=== PATIENT | female | born 1935 | race Caucasian/White ===

== ENCOUNTER → 2017-07-09 | Outpatient (CLI) | payer MEDICARE, BC ==
[2017-07-09 12:27] LABS: Blood Urea Nitrogen 30 mg/dL (7-17)
== END | disposition home or self-care (01) ==
LOC: LABWHC1 11:40
PROVIDERS: ATTEND Physical Medicine & Rehabilitation
DX: Z01.818 Encounter for other preprocedural examination (principal); N28.9 Disorder of kidney and ureter, unspecified; M48.062 Spinal stenosis, lumbar region with neurogenic claudication; Z98.890 Other specified postprocedural states
CPT/HCPCS: 36415; 82565; 84520

== ENCOUNTER → 2018-01-31 | Outpatient (CLI) | payer MEDICARE, BC ==
[2018-01-31 11:58] LABS: HCT 42.6 % (34.0-46.0); HGB 13.6 gm/dL (11.4-16.0); MCH 29.7 pg (25.0-35.0); MCV 92.6 fL (80.0-100.0); Mean Platelet Volume 6.8; Platelet Count 212 k/uL (150-450); RDW 14.7 % (11.5-15.5); WBC 5.3 k/uL (3.8-10.6)
[2018-01-31 12:16] LABS: Partial Thromboplastin Time 25.6 sec (22.0-30.0); Prothrombin Time 9.6 sec (9.0-12.0)
[2018-01-31 12:19] LABS: Appearance,Urine Turbid (Clear); Bacteria,Urine Moderate /hpf; Bilirubin,Urine Negative (Negative); Blood,Urine Small (Negative); Color,Urine Yellow; Glucose,Urine (UA) Negative (Negative); Ketones,Urine Negative (Negative); Leukocyte Esterase,Urine Large (Negative); Mucus,Urine Rare /hpf; Nitrite,Urine Negative (Negative); PH, Urine 5.5 (5.0-8.0); Protein,Urine 1+ (Negative); Specific Gravity,Urine 1.015 (1.001-1.035); Squamous Epithelial Cell,Urine 6 /hpf (0-4); Urobilinogen,Urine <2.0 mg/dL (<2.0); WBC,Urine >182 /hpf (0-5)
[2018-01-31 12:21] LABS: Albumin 3.9 g/dL (3.5-5.0); Calcium 9.2 mg/dL (8.4-10.2); Potassium 4.2 mmol/L (3.5-5.1); Total Bilirubin 0.6 mg/dL (0.2-1.3); Total Protein 6.9 g/dL (6.3-8.2)
== END | disposition home or self-care (01) ==
LOC: LABPAT 11:00
PROVIDERS: ATTEND Orthopaedic Surgery
DX: Z01.812 Encounter for preprocedural laboratory examination (principal)
CPT/HCPCS: 80053; 81001; 85027; 85610; 85730; 87070

== ENCOUNTER 2018-02-12 05:33 | Inpatient (IN) | payer MEDICARE, BC ==
[2018-02-05 10:46] VITALS: BMI 30.6
[~2018-02-12 05:33] MED LIST: ACETAMINOPHEN TAB 500 MG TAB PO ONE; TRANEXAMIC ACID 1,000 MG in SODIUM CHLORIDE 0.9% 50 ML IVPB ONE; ceFAZolin IN SWFI 2 GM/20 ML SYRINGE IVP ONE
[2018-02-12] MEDS ORDERED: LACTATED RINGERS 1,000 ML IV ONE ×2 (06:36→08:09)
[2018-02-12] MEDS ORDERED: LIDOCAINE 1% 20 ML VIAL (10MG/ML) FOR IV START INTRADERMA ONE (06:36)
[2018-02-12 06:37] LABS: Glucose,Whole Blood 87 mg/dL (75-99)
[2018-02-12] MEDS ORDERED: ONDANSETRON 4 MG/2 ML VIAL ONE (06:42)
[2018-02-12] MEDS ORDERED: MIDAZOLAM 2 MG/2 ML VIAL ONE ×2 (06:44→07:05)
[2018-02-12] MEDS ORDERED: ONDANSETRON 4 MG/2 ML VIAL IVP ONE (06:44)
[2018-02-12] MEDS ORDERED: DEXAMETHASONE SOD PHOS (MDV) 100 MG/10 ML VIAL IVP ONE (06:45)
[2018-02-12] MEDS ORDERED: HYDROmorphone 0.5 MG/0.5 ML SYRINGE IVP PRN (06:53)
[2018-02-12] MEDS ORDERED: LIDOCAINE 1% 20 ML VIAL (10MG/ML) FOR IV START INTRADERMA PRN (06:53)
[2018-02-12] MEDS: ROPIVACAINE 246.25 MG, EPINEPHrine 0.5 MG, KETOROLAC 30 MG, cloNIDine HCL/PF 80 MCG, WA... MISCELLANE ONE ×10 (06:53→07:40)
[2018-02-12] MEDS ORDERED: NA PHOS,M-B/NA PHOS,DI-BA 133 ML ENEMA RECTAL PRN (06:58)
[2018-02-12] MEDS ORDERED: ONDANSETRON 4 MG/2 ML VIAL IVP PRN (06:58)
[2018-02-12] MEDS ORDERED: DIAZEPAM 5 MG TAB PO PRN (06:58)
[2018-02-12] MEDS ORDERED: NALOXONE 0.4 MG/ML 1 ML VIAL IV PRN (06:58)
[2018-02-12] MEDS ORDERED: HYDROcodone/APAP 5-325MG 1 EACH TAB PO PRN (06:58)
[2018-02-12] MEDS ORDERED: HYDROmorphone 1 MG/ML 1 ML SYRINGE IVP PRN ×3 (06:58)
[2018-02-12] MEDS ORDERED: MAGNESIUM HYDROXIDE 2,400 MG/10 ML CUP PO PRN (06:58)
[2018-02-12] MEDS ORDERED: BISACODYL 10 MG SUPP RECTAL PRN (06:58)
[2018-02-12] MEDS ORDERED: fentaNYL (PF) 50 MCG/ML 2 ML AMP ONE (07:05)
[2018-02-12] MEDS ORDERED: LIDOCAINE 1% INJ 10MG/ML (20 ML MDV) ONE (07:05)
[2018-02-12] MEDS ORDERED: PROPOFOL 10 MG/ML 20 ML VIAL IV ONE (07:05)
[2018-02-12] MEDS ORDERED: TRANEXAMIC ACID 1,000 MG/10 ML VIAL ONE (07:05)
[2018-02-12] MEDS ORDERED: SODIUM CHLORIDE 0.9% 100 ML BAG ONE (07:05)
[2018-02-12] MEDS ORDERED: CLINDAMYCIN 1,800 MG in SODIUM CHLORIDE 0.9% IRRIGATIO 3,000 ML IRRIGATION ONE (07:41)
--- NOTE | 2018-02-12 08:49 | P.OP ---
Date of Procedure: 02/12/18 Preoperative Diagnosis: Failed unicompartmental knee replacement right knee Postoperative Diagnosis: Failed unicompartmental knee replacement right knee Procedure(s) Performed: Revision right total knee arthroplasty Implants: Tiwari and Nephew Oxinium femoral component size 4, right Tiwari & Nephew Jimena II right nonporous tibial baseplate size 4 Tiwari & Nephew size 15 mm Legion XLPE dished articular insert, size 3-4 Tiwari & Nephew Jimena II resurfacing patellar component, 29 mm All components were cemented using Gardenia bone cement.. The articulation is Oxinium on polyethylene. Anesthesia: spinal Surgeon: Mark Siegel Senior Project Controls Specialist #1: Komal Rosario Estimated Blood Loss (ml): 50 Pathology: other (Bone and cartilage) Condition: stable Disposition: PACU Indications for Procedure: This is an 82-year-old female that has had a prior unicompartmental knee replacement of her right knee. She subsequently developed pain secondary to worsening arthritis of the patellofemoral and lateral femoral compartments, as well as wear of the medial unicompartmental knee replacement. I discussed the surgical and nonsurgical treatment options with her at length, and she wishes to proceed with revision right total knee arthroplasty. Informed consent was obtained. Operative Findings: The operative findings are consistent with a failed unicompartmental knee replacement the right knee. There is extensive polyethylene wear of the medial unicompartmental knee replacement, as well as significant arthritic changes of the lateral patellofemoral compartments. Description of Procedure: Patient was seen in the preoperative area consent was reviewed and operative site was marked with a skin marker. An adductor canal pain catheter was placed by anesthesia in the preoperative area. Patient was then brought to the operating room and given preoperative antibiotics intravenously. A spinal anesthetic was administered by the anesthesia department. A tourniquet was placed on the upper thigh and the lower extremity was prepped and draped in usual sterile fashion. A gram of transexamic acid was given. A universal timeout was then performed which confirmed the patient's name, surgical site, ALLERGIES, and consent. The lower extremity was then exsanguinated and tourniquet was inflated to 250 mmHg. A standard and anterior midline approach to the knee was performed. The skin and subcutaneous tissue was dissected down to the patellar tendon. A medial parapatellar arthrotomy was then performed. The knee was then extended, the patellar was everted, and the knee was again flexed. Anterior horns of both menisci were excised, and a release was performed to the posterior medial aspect of the knee. On gross visual inspection, there was complete loss of articular cartilage in the lateral and patellofemoral joint spaces, as well as significant wear of the polyethylene of the medial compartment knee replacement. There were multiple periarticular osteophytes which were then removed with a Ronguer. The femoral canal was then opened with the appropriate drill, and the intramedullary femoral cutting guide was then placed and set for 4 of valgus. The distal femoral cutting block was then pinned in place. Next , using a small oscillating saw, the implant cement interface was disrupted from the femoral component of the unicompartmental knee replacement. The implant was then removed with a bone punch and mallet without incident. Minimal bone loss was encountered. The distal femur was then cut using the cutting guide. The cutting block was then removed and the cut was checked for flatness. Next, the sizing guide was then placed and set for 3 external rotation based off of the epicondylar axis and Whitesides line. After the femur was sized, the appropriate 4-in-1 cutting block was then pinned in place. The anterior condyles were cut without notching. The posterior and chamfer cuts were performed while protecting the collateral ligaments. The cutting block was then removed, and the femoral canal was plugged with autologous bone. Attention was then directed to the tibia. The remaining ACL was removed with a Ronguer, and the tibia was then gently subluxed forward with a large bent knee retractor. Any remaining menisci was excised. The posterior lateral corner was cauterized in order to cauterize the lateral geniculate artery. The extra medullary tibial cutting guide was then placed, set for the appropriate rotation , slope, and depth of resection. The cut was oriented to be just underneath the medial tibial component. The proximal tibia cutting guide was then pinned in place. Proximal tibia was then cut and sized. Next trials were then placed with the appropriate-sized insert. The knee was able to fully extend and flex to 130 and was stable throughout all range of motion. The knee was then extended, patella everted. Patella was then measured, and then using an osteotomy guide, the patella was cut at the appropriate level. The patella was then measured and drilled and the patella trial was then placed. The knee was then taken through range of motion with the patella trial and the patella tracked normally. The knee was then extended patella trial was then removed and the patella was everted. Knee was then flexed and lug holes were drilled through the femoral trial and the femoral trial was then removed. The tibial was then exposed, and the tibial broach guide was then pinned in place after it was set for the appropriate rotation to allow for the most coverage without overhang. The tibia was then reamed and broached. The cut surfaces of bone were then irrigated with pulsatile lavage. The posterior structures were injected with the ropivacaine solution. The knee was also irrigated with Irrisept solution. The components were then opened, the cement was mixed, and the components were then cemented in place. The cement was allowed to harden with the knee in full extension. While the cement was hardening, the remaining soft tissues were then injected with a ropivacaine solution, which consisted of 246.25 mg of ropivacaine, 0.5 mg of epinephrine, 30 mg of Toradol, 80 g of clonidine, and 48.45 mL of sterile water, for a total of 100 mL of fluid injected. After the cemented hardened. The tourniquet was released, and hemostasis was obtained. A second gram of transexamic acid was given. The knee was again irrigated. The knee was again taken through range of motion and found to be stable throughout all range of motion of 0-130 , and the patella tracked normally. The fascia was then closed with #2 strata fix suture. The subcutaneous tissue was closed with 3-0 Vicryl and 3-0 strata fix. Dermabond glue was used for the skin and placed with the knee in flexion. The patient was placed in a sterile silver dressing. Patient was then transferred to recovery room in stable condition. The operations and intelligence assistant ALEXEI Solorio was required due the complexity surgery and the need for a skilled certified surgical technician. She assisted in positioning, draping, retraction, and closure of the wound.
[2018-02-12] MEDS ORDERED: ROPIVACAINE 1,100 MG, SODIUM CHLORIDE 0.9% 330 ML MISCELLANE PRN ×2 (10:07)
--- NOTE | 2018-02-12 10:10 | P.ONQ ---
Anesthesiology Proc Note - PNB - Peripheral Nerve Block Performed Right Adductor Canal Infusion Procedure Start Time: 09:29 Indication: Acute Post-Operative Pain, Analgesia Specifically requested for management of pain by : Mark Siegel Sedation Type: Sedate with meaningful contact maintained Preparation: Sterile Prep Position: Supine Catheter Depth at Skin (cm): 8 Catheter: Indwelling Needle Types: On-Q Needle Size: 150mm (6") Needle Gauge: 18 Technique: Ultrasound Injectate: 0.5% Ropivacaine (see comment for volume) (20cc) Blood Aspirated: No Pain Paresthesia on Injection Noted: No Resistance on Injection: Normal Events: Uneventful and Well Tolerated
--- NOTE | 2018-02-12 10:12 | XR ---
EXAMINATION TYPE: XR knee limited RT DATE OF EXAM: 02/12/2018 COMPARISON: NONE TECHNIQUE: Two views submitted HISTORY: Post op FINDINGS: There is a prosthetic knee in near anatomic alignment. There is soft tissue edema and emphysema. IMPRESSION: 1. Postoperative change. Appears in near-anatomic alignment
[2018-02-12] MEDS: LACTATED RINGERS 1,000 ML IV SCH (11:23)
[2018-02-12] MEDS: SODIUM CHLORIDE 0.9% 1,000 ML IV SCH ×2 (11:24→20:18)
--- NOTE | 2018-02-12 16:11 | P.CONS ---
History of Present Illness - Reason for Consult Consult date: 02/12/18 Medical management of heart failure Requesting physician: Mark Siegel - Chief Complaint Consulted for medical management of heart failure - History of Present Illness The patient is a 82-year-old female the past focal history of congestive heart failure unknown type who is currently postop day #0 after having revision of right total knee arthroplasty secondary to her history of failed unicompartmental knee replacement. The patient is doing really well and has no complaints, she reports a history of congestive heart failure and mentions mild lower extremity swelling at this time, she denies any shortness of breath, she denies chest pain,she denies cough. She is in great spirits and feels Good today. The patient did report being treated for a recent UTI when asked about her Bactrim, she reports she was given a ten-day course for which she's only completed 5 days due to having severe nausea from her antibiotics. At present she was without any urinary symptoms she denies any dysuria frequency or urgency or suprapubic tenderness. Review of Systems Pertinent positives per HPI, all other review of systems are otherwise negative Past Medical History Past Medical History: Heart Failure, Osteoarthritis (OA) Additional Past Medical History / Comment(s): current tx UTI,swelling stephanie feet and ankles,"fast heart rate",steroid injection to back within 3 mos History of Any Multi-Drug Resistant Organisms: None Reported Past Surgical History: Appendectomy, Back Surgery, Cardiac Ablation, Cholecystectomy, Hernia Repair, Joint Replacement Additional Past Surgical History / Comment(s): back fusion,Pain procedures to back,stephanie knee replacements,stephanie cataracts Past Anesthesia/Blood Transfusion Reactions: Postoperative Nausea & Vomiting ( PONV) Additional Past Anesthesia/Blood Transfusion Reaction / Comm: no hx blood transfusion Past Psychological History: No Psychological Hx Reported Smoking Status: Never smoker Past Alcohol Use History: None Reported Past Drug Use History: None Reported - Past Family History Mother Family Medical History: No Reported History Sister(s) Family Medical History: Cancer Additional Family Medical History / Comment(s): pancreas Father Family Medical History: Cancer Additional Family Medical History / Comment(s): skin Medications and Allergies Home Medications Medication Instructions Recorded Confirmed Type Aspirin 81 mg PO DAILY 02/05/18 02/12/18 History Bumetanide [BUMEX] 2 mg PO BID 02/05/18 02/12/18 History Cholecalciferol [Vitamin D3] 1,000 unit PO DAILY 02/05/18 02/12/18 History Estradiol [Estrace] 0.5 mg PO QAM 02/05/18 02/12/18 History Fexofenadine/Pseudoephedrine 1 tab PO DAILY 02/05/18 02/12/18 History [Brina-D 24 Hour Tablet] Magnesium Oxide [Mag-Ox] 250 mg PO BID 02/05/18 02/12/18 History Multivit-Min/Iron/Folic/Lutein 1 tab PO DAILY 02/05/18 02/12/18 History [Centrum Silver Women Tablet] Emory-3 Fatty Acids/Fish Oil [Fish 1 cap PO DAILY 02/05/18 02/12/18 History Oil 1,000 mg Softgel] Potassium Chloride [Klor-Con 20] 20 meq PO BID 02/05/18 02/12/18 History Ubidecarenone [Co Q-10] 100 mg PO DAILY 02/05/18 02/12/18 History Vitamin B Complex 1 cap PO DAILY 02/05/18 02/12/18 History Acetaminophen [Tylenol Extra 1,000 mg PO BID PRN 02/08/18 02/12/18 History Strength] Bimatoprost [Lumigan .01% Ophth 1 drop BOTH EYES HS 02/12/18 02/12/18 History Soln] Sulfamethox-Tmp 800-160Mg [Bactrim 1 tab PO BID 02/12/18 02/12/18 History DS 800-160 mg] Allergies Allergy/AdvReac Type Severity Reaction Status Date / Time adhesive tape Allergy Rash/Hives,"paper Verified 02/12/18 12:39 tape is ok" amoxicillin Allergy Rash/Hives Verified 02/12/18 12:39 celecoxib [From Celebrex] Allergy Swelling Verified 02/12/18 12:39 Penicillins Allergy Rash/Hives Verified 02/12/18 12:39 rofecoxib [From Vioxx] Allergy Swelling Verified 02/12/18 12:39 arthritis drugs Allergy Swelling Uncoded 02/05/18 10:13 Physical Exam Vitals: Vital Signs Temp Pulse Resp BP Pulse Ox 02/12/18 13:00 92 16 152/74 95 02/12/18 12:45 81 16 170/74 94 L 02/12/18 12:30 86 16 156/85 99 02/12/18 12:15 77 16 151/85 98 02/12/18 12:00 82 16 150/85 98 02/12/18 11:45 85 16 152/86 95 02/12/18 11:30 80 16 142/84 99 02/12/18 11:15 76 16 143/82 98 02/12/18 11:00 98 F 77 16 139/82 98 02/12/18 10:30 77 16 118/68 97 02/12/18 10:15 75 16 123/60 95 02/12/18 10:00 74 16 125/59 95 02/12/18 09:39 75 16 125/60 95 02/12/18 09:24 77 16 123/77 98 02/12/18 09:09 97.5 F L 87 16 103/58 95 02/12/18 06:20 98.1 F 99 18 147/65 98 Intake and Output 02/12/18 02/12/18 02/12/18 06:59 14:59 22:59 Intake Total 100 1601 Output Total 450 Balance 100 1151 Intake: IV 100 1601 Output: Urine 400 Estimated Blood Loss 50 Other: # Voids 1 Weight 77.111 kg Constitutional: No acute distress, conversant, pleasant Eyes: Anicteric sclerae, moist conjunctiva, no lid-lag, PERRLA ENMT: NC/AT,Oropharynx clear, no erythema, exudates Neck:Supple, FROM, no masses, or JVD, No carotid bruits; No thyromegaly Lungs: Clear to auscultation, Clear to percussion, Normal respiratory effort, no accessory muscle use Cardiovascular: Heart regular in rate and rhythm, No murmurs, gallops, Abdominal: Soft Nontender, nom distended, no guarding, no rebound or rigidity, Normoactive bowel sounds No hepatomegaly, No splenomegaly, No palpable mass No abdominal wall hernia noted Skin: Normal temperature, tone, texture, turgor, No induration No subcutaneous nodules, No rash, lesions, No ulcers Extremities: Right lower extremity bandaged and dressed no drainage noted, good pulses bilaterally, trace peripheral edema in the legs. Psychiatric: Alert and oriented to person, place and time, Appropriate affect Intact judgement Neuro: Muscles Strength 5/5 in all 4 extremities, Sensation to light touch grossly present throughout, Cranial nerves II-XII grossly intact. No focal sensory deficits Assessment and Plan (1) Congestive heart failure Current Visit: Yes Status: Acute Code(s): I50.9 - HEART FAILURE, UNSPECIFIED SNOMED Code(s): 11200110 (2) Status post right knee surgery Current Visit: Yes Status: Acute Code(s): Z98.890 - OTHER SPECIFIED POSTPROCEDURAL STATES SNOMED Code(s): 150878251 (3) History of urinary tract infection Current Visit: Yes Status: Acute Code(s): Z87.440 - PERSONAL HISTORY OF URINARY (TRACT) INFECTIONS SNOMED Code(s): 5362833068043 (4) Essential hypertension Current Visit: Yes Status: Acute Code(s): I10 - ESSENTIAL (PRIMARY) HYPERTENSION SNOMED Code(s): 16273853 Plan: The patient is admitted to primary orthopedic service under Dr. Siegel and is doing well postop, will defer all ongoing analgesic post surgical pain management to primary team. She reports history of congestive heart failure of unknown type and is currently euvolemic and asymptomatic. Her blood pressure is currently elevated we'll continue to monitor plan to resume her home Bumex dose and see if it normalizes. She reports a history of urinary tract infection that appears to have been treated, currently denied any urinary symptoms. Patient is doing pretty well, would expect discharge for tomorrow. We'll continue to follow her clinical course I appreciate the opportunity to be involved ongoing care of this patient.
[2018-02-12] MEDS: ceFAZolin IN SWFI 2 GM/20 ML SYRINGE IVP SCH (16:33)
[2018-02-12] MEDS: HYDROcodone/APAP 5-325MG 1 EACH TAB PO PRN (20:17)
[2018-02-12] MEDS: MAGNESIUM OXIDE 400 MG TAB PO SCH (20:18)
[2018-02-12] MEDS: POTASSIUM CHLORIDE ER 20 MEQ TAB.ER PO SCH (20:18)
[2018-02-12] MEDS: ASPIRIN 325 MG TAB PO SCH (20:18)
[2018-02-12] MEDS: BUMETANIDE 1 MG TAB PO SCH (20:18)
[2018-02-12] MEDS: SENNOSIDES-DOCUSATE SODIUM 1 EACH TAB PO SCH (20:18)
[2018-02-12] MEDS: LATANOPROST 0.005% OPHTH DROPS 2.5 ML BTL BOTH EYES SCH (20:18)
[2018-02-13] MEDS: ceFAZolin IN SWFI 2 GM/20 ML SYRINGE IVP SCH (00:14)
[2018-02-13] MEDS: LACTATED RINGERS 1,000 ML IV SCH (07:51)
[2018-02-13 08:09] LABS: Basophils % (A) 0 %; Eosinophils # (A) 0.1 k/uL (0-0.7); Eosinophils % (A) 1 %; HCT 34.6 % (34.0-46.0); HGB 11.2 gm/dL (11.4-16.0); Lymphocytes # (A) 1.5 k/uL (1.0-4.8); Lymphocytes % (A) 25 %; MCHC 32.5 g/dL (31.0-37.0); MCV 92.2 fL (80.0-100.0); Mean Platelet Volume 7.7; Monocytes # (A) 0.4 k/uL (0-1.0); Monocytes % (A) 8 %; Neutrophils # (A) 3.8 k/uL (1.3-7.7); Neutrophils % (A) 65 %; Platelet Count 222 k/uL (150-450); RBC 3.75 m/uL (3.80-5.40); RDW 14.2 % (11.5-15.5); WBC 5.9 k/uL (3.8-10.6)
[2018-02-13] MEDS: HYDROcodone/APAP 5-325MG 1 EACH TAB PO PRN ×3 (08:19→23:17)
[2018-02-13] MEDS: MULTIVITAMINS, THERA 1 EACH TAB PO SCH (08:19)
[2018-02-13] MEDS: BUMETANIDE 1 MG TAB PO SCH (08:19)
[2018-02-13] MEDS: ASPIRIN 325 MG TAB PO SCH ×2 (08:19→20:32)
[2018-02-13] MEDS: CHOLECALCIFEROL 1,000 UNIT TAB PO SCH ×2 (08:19→08:20)
[2018-02-13] MEDS: MAGNESIUM OXIDE 400 MG TAB PO SCH ×2 (08:26→20:32)
[2018-02-13] MEDS: POTASSIUM CHLORIDE ER 20 MEQ TAB.ER PO SCH ×2 (08:26→20:32)
[2018-02-13] MEDS ORDERED: ASPIRIN 81 MG PO SCH (09:00)
[2018-02-13] MEDS ORDERED: NON-FORMULARY DRUG (Ubidecarenone [Co Q-10] 100 MG) PO SCH (09:00)
[2018-02-13] MEDS ORDERED: NON-FORMULARY DRUG (Omega-3 Fatty Acids/Fish Oil [Fish Oil 1,000 Mg Softgel] 1 CAP) PO SCH (09:00)
--- NOTE | 2018-02-13 09:01 | P.PN ---
Subjective Progress Note Date: 02/13/18 This is an 82-year-old female who is status post revision right total knee arthroplasty. This is postoperative day #1. Patient is seen and evaluated at bedside with Dr. Mark Siegel. Patient states that her pain is well controlled. Patient denies any fever/chills, numbness, weakness, tingling, abdominal pain, shortness of breath or chest pain. Objective - Vital Signs Vital signs: Vital Signs Temp 97.9 F 02/13/18 07:00 Pulse 61 02/13/18 07:00 Resp 16 02/13/18 07:00 BP 112/69 02/13/18 07:00 Pulse Ox 98 02/13/18 07:00 Intake & Output 02/12/18 02/13/18 02/13/18 18:59 06:59 18:59 Intake Total 1601 200 Output Total 450 Balance 1151 200 Weight 77.111 kg 77.111 kg Intake: IV 1601 Intake, IV Titration 200 Amount Sodium Chloride 0.9% 1, 200 000 ml @ 65 mls/hr IV . [id number] [facility] Rx#:[id number] Output: Urine 400 Estimated Blood Loss 50 Other: Voiding Method Toilet Toilet # Voids 2 - Exam Vital signs are stable. Patient is in no acute distress and is alert and oriented 3. Calf is soft and nontender to palpation. Dressing is clean, dry, and intact. Patient has full foot and ankle motion without pain or difficulty. Neurovascular status and circulatory status are intact. - Labs CBC & Chem 7: 02/13/18 07:24 Labs: Abnormal Lab Results - Last 24 Hours (Table) 02/13/18 Range/Units 07:24 RBC 3.75 L (3.80-5.40) m/uL Hgb 11.2 L (11.4-16.0) gm/dL Assessment and Plan (1) S/P total knee arthroplasty Current Visit: Yes Status: Acute Code(s): Z96.659 - PRESENCE OF UNSPECIFIED ARTIFICIAL KNEE JOINT SNOMED Code(s): 4444217024466 Plan: #1 Continue with routine postoperative care, leave dressing in place for ten days. #2 Anticoagulation with aspirin. #3 Physical therapy and CPM today. #4 Appreciate input from medicine. #5 Anticipate discharge to rehab on Sunday.
[2018-02-13] MEDS ORDERED: SODIUM CHLORIDE 0.9% 500 ML IV ONE ×2 (09:57→11:23)
[2018-02-13] MEDS: SODIUM CHLORIDE 0.9% 1,000 ML IV SCH ×2 (13:09→20:32)
--- NOTE | 2018-02-13 17:51 | P.PN ---
Subjective Progress Note Date: 02/13/18 (deayed charting patient seen at approximately 10 am) Principal diagnosis: Knee pain Patient is an 82-year-old female with a past medical history of osteoarthritis, congestive heart failure, and prior urinary tract infection who presented for elective right total knee arthroplasty. She underwent surgery on 02/12 without any immediate postoperative complications. This morning she had a syncopal event while ambulating back from the bathroom. She felt lightheaded hot and dizzy. The clinical nursing coordinator was with her and she managed to get back to bed was lowered down and then had a presyncopal episode. They checked her blood pressure was 89/58. After lying down for several minutes her blood pressure increased to 119/65. Patient seen and examined at bedside. She denies any chest pain, shortness breath, lightheadedness, or dizziness at this point in time. She reports that she did feel hot and dizzy which she was in the bathroom. She tells me that she has a history of a syncopal event after having her cardiac ablation. She states that her and her mother both have a history of these. She does the licensed therapist out of [place] and has had multiple evaluations without any significant events noted recently. She is feeling fine at this point in time. She does report that the episode happened when she got a sharp pain in her knee. The pain is still there but has decreased significantly. She felt as though the pain not wind out of her. Objective - Vital Signs Vital signs: Vital Signs Temp 97.8 F 02/13/18 14:58 Pulse 93 02/13/18 15:42 Resp 16 02/13/18 15:42 BP 126/78 02/13/18 14:58 Pulse Ox 98 02/13/18 14:58 Intake & Output 02/12/18 02/13/18 02/13/18 18:59 06:59 18:59 Intake Total 1601 200 500 Output Total 450 Balance 1151 200 500 Weight 77.111 kg 77.111 kg 77.111 kg Intake: IV 1601 Intake, IV Titration 200 Amount Sodium Chloride 0.9% 1, 200 000 ml @ 65 mls/hr IV . [id number] [facility] Rx#:[id number] Oral 500 Output: Urine 400 Estimated Blood Loss 50 Other: Voiding Method Toilet Toilet Toilet # Voids 2 2 - Exam General: non toxic, no distress, appears younger than stated age, obese Derm: warm, dry Head: atraumatic, normocephalic, symmetric Eyes: EOMI, no lid lag, anicteric sclera Mouth: no lip lesion, mucus membranes moist Cardiovascular: S1S2 reg, no murmur, positive posterior tibial pulse bilateral, Lungs: CTA bilateral, no rhonchi, no rales , no accessory muscle use Abdominal: soft, nontender to palpation, no guarding, no appreciable organomegaly Ext: no gross muscle atrophy, leg with 1+ edema, dressing in place over right knee, no contractures Neuro: CN II-XI grossly intact, no focal neuro deficits Psych: Alert, oriented, appropriate affect - Labs CBC & Chem 7: 02/13/18 07:24 Labs: Abnormal Lab Results - Last 24 Hours (Table) 02/13/18 Range/Units 07:24 RBC 3.75 L (3.80-5.40) m/uL Hgb 11.2 L (11.4-16.0) gm/dL Assessment and Plan Assessment: Syncopal event -Orthostatic with positive orthostatic vitals. Patient had a 500 mL bolus and continued to have positive orthostatics. -Diuretics were held -Increase IV fluid and repeat 500 mL bolus -Fall precautions -Repeat orthostatic vitals in a.m. Osteoarthritis status post right total knee arthroplasty -Management per orthopedic surgery -Anticoagulated with aspirin -High-risk features of this patient including age of 82, obesity with a BMI of 30.6, living alone, requiring a cane/shower chair/walker prior to admission for knee replacement. She is also at risk with her syncopal event and polypharmacy required for adequate pain control. Acute blood loss anemia and anticipated outcome of surgery -Follow CBC in a.m. -No indication for oral iron supplementation at this point in time Chronic Congestive heart failure, unknown ejection fraction -Gentle IV fluids secondary to syncopal episode and positive orthostatic vitals -Hold diuretics -Patient is not chronically on beta baron or JARVIS inhibitor and this will not be initiated at this point in time DVT prophylaxis: Aspirin Discussed with: Patient and nursing Anticipated discharge: 2-[address]: [facility] A total of 25 minutes was spent on the care of this complex patient more than 50 % of the time was spent in counseling and care coordination.
[2018-02-13] MEDS: LATANOPROST 0.005% OPHTH DROPS 2.5 ML BTL BOTH EYES SCH (20:32)
[2018-02-13] MEDS: SENNOSIDES-DOCUSATE SODIUM 1 EACH TAB PO SCH (20:32)
[2018-02-14] MEDS: HYDROcodone/APAP 5-325MG 1 EACH TAB PO PRN ×3 (05:18→17:32)
[2018-02-14] MEDS: LACTATED RINGERS 1,000 ML IV SCH (07:53)
[2018-02-14] MEDS: SODIUM CHLORIDE 0.9% 1,000 ML IV SCH ×2 (07:53→15:30)
--- NOTE | 2018-02-14 08:19 | P.PN ---
Subjective Progress Note Date: 02/14/18 This is an 82-year-old female who is status post revision right total knee arthroplasty. This is postoperative day #2. Patient states that her pain is slightly worse than yesterday. Patient states that she did pass out while using the bathroom yesterday. Patient states that she did not hit her head or fall and was with a nurse aid when this happened. Patient states that she is feeling better this morning, but she has not been up and walking yet today. Patient denies any fever/chills, numbness, weakness, tingling, abdominal pain, shortness of breath or chest pain. Objective - Vital Signs Vital signs: Vital Signs Temp 98 F 02/14/18 07:00 Pulse 87 02/14/18 07:00 Resp 14 02/14/18 07:00 BP 143/76 02/14/18 07:00 Pulse Ox 97 02/14/18 07:00 Intake & Output 02/13/18 02/14/18 02/14/18 18:59 06:59 18:59 Intake Total 500 700 Balance 500 700 Weight 77.111 kg Intake: Intake, IV Titration 350 Amount Sodium Chloride 0.9% 1, 350 000 ml @ 100 mls/hr IV . Q10H [facility] Rx#:[id number] Oral 500 350 Other: Voiding Method Toilet # Voids 2 2 # Bowel Movements 1 - Exam Vital signs are stable. Patient is in no acute distress and is alert and oriented 3. Calf is soft and nontender to palpation. Dressing is clean, dry, and intact. Patient has full foot and ankle motion without pain or difficulty. Neurovascular status and circulatory status are intact. - Labs CBC & Chem 7: 02/13/18 07:24 Assessment and Plan (1) S/P total knee arthroplasty Current Visit: Yes Status: Acute Code(s): Z96.659 - PRESENCE OF UNSPECIFIED ARTIFICIAL KNEE JOINT SNOMED Code(s): 3266646617095 Plan: #1 Continue with routine postoperative care, leave dressing in place for ten days. #2 Anticoagulation with aspirin. #3 Physical therapy and CPM today. #4 Appreciate input from medicine. #5 Anticipate discharge to rehab on Sunday.
[2018-02-14] MEDS: CHOLECALCIFEROL 1,000 UNIT TAB PO SCH (08:28)
[2018-02-14] MEDS: ASPIRIN 325 MG TAB PO SCH ×2 (08:28→20:29)
[2018-02-14] MEDS: POTASSIUM CHLORIDE ER 20 MEQ TAB.ER PO SCH ×2 (08:28→20:29)
[2018-02-14] MEDS: MAGNESIUM OXIDE 400 MG TAB PO SCH ×2 (08:28→20:29)
[2018-02-14] MEDS: MULTIVITAMINS, THERA 1 EACH TAB PO SCH (08:28)
--- NOTE | 2018-02-14 14:19 | XR ---
EXAMINATION TYPE: XR chest 1V portable DATE OF EXAM: 02/14/2018 COMPARISON: NONE HISTORY: Rehabilitation placement TECHNIQUE: Single frontal view of the chest is obtained. FINDINGS: Bilateral subsegmental consolidation. No overt failure or pneumothorax. Arthropathy of the shoulders. Heart size normal. IMPRESSION: 1. Bilateral lower lobe infiltrate or atelectasis.
[2018-02-14] MEDS: LATANOPROST 0.005% OPHTH DROPS 2.5 ML BTL BOTH EYES SCH (20:29)
--- NOTE | 2018-02-14 20:44 | P.PN ---
Subjective Progress Note Date: 02/14/18 (Delayed charting patient seen at 0945) Principal diagnosis: Knee pain Patient is an 82-year-old female with a past medical history of osteoarthritis, congestive heart failure, and prior urinary tract infection who presented for elective right total knee arthroplasty. She underwent surgery on 02/12 without any immediate postoperative complications. On the morning of 02/13 she had a syncopal event while ambulating back from the bathroom. She felt lightheaded hot and dizzy. The nursing care partner was with her and she managed to get back to bed was lowered down and then had a presyncopal episode. They checked her blood pressure was 89/58. After lying down for several minutes her blood pressure increased to 119/65. She was found have positive orthostatics. She was maintained on IV fluids and her diuretics were held. Her orthostatic hypotension had resolved on repeat testing by 02/14. Patient seen and examined at bedside. Feeling back to normal today. Pain is better controlled. She denies any shortness of breath, nausea, vomiting, diarrhea, or constipation. She did have a bowel movement today. Objective - Vital Signs Vital signs: Vital Signs Temp 98 F 02/14/18 19:25 Pulse 99 02/14/18 19:25 Resp 18 02/14/18 19:25 BP 128/74 02/14/18 19:25 Pulse Ox 95 02/14/18 19:25 Intake & Output 02/14/18 02/14/18 02/15/18 06:59 18:59 06:59 Intake Total 700 200 Output Total 100 Balance 700 100 Intake: Intake, IV Titration 350 Amount Sodium Chloride 0.9% 1, 350 000 ml @ 100 mls/hr IV . Q10H [facility] Rx#:[id number] Oral 350 200 Output: Urine 100 Other: Voiding Method Toilet # Voids 2 # Bowel Movements 1 - Exam General: non toxic, no distress, appears younger than stated age, obese Derm: warm, dry Head: atraumatic, normocephalic, symmetric Eyes: EOMI, no lid lag, anicteric sclera Mouth: no lip lesion, mucus membranes moist Cardiovascular: S1S2 reg, no murmur, positive posterior tibial pulse bilateral, Lungs: CTA bilateral, no rhonchi, no rales , no accessory muscle use Abdominal: soft, nontender to palpation, no guarding, no appreciable organomegaly Ext: no gross muscle atrophy, Right leg with trace edema, dressing in place over right knee, no contractures Neuro: CN II-XI grossly intact, no focal neuro deficits Psych: Alert, oriented, appropriate affect - Labs CBC & Chem 7: 02/13/18 07:24 Assessment and Plan Assessment: Syncopal event due to orthostatic hypotension -Orthostatics now negative -Stop IV fluids -Reinitiate Bumex but at half dose. Osteoarthritis status post right total knee arthroplasty -Management per orthopedic surgery -Anticoagulated with aspirin -High-risk features of this patient including age of 82, obesity with a BMI of 30.6, living alone, requiring a cane/shower chair/walker prior to admission for knee replacement. She is also at risk with her syncopal event and polypharmacy required for adequate pain control. Acute blood loss anemia as an anticipated outcome of surgery -Follow CBC in a.m. -No indication for oral iron supplementation at this point in time Chronic Congestive heart failure, unknown ejection fraction -Off IV fluids -Resume diuretics -Patient is not chronically on beta baron or JARVIS inhibitor and this will not be initiated at this point in time DVT prophylaxis: Aspirin Discussed with: Patient and nursing Anticipated discharge: in AM Anticipated discharge place: SNF A total of 25 minutes was spent on the care of this complex patient more than 50 % of the time was spent in counseling and care coordination.
[2018-02-14] MEDS: SENNOSIDES-DOCUSATE SODIUM 1 EACH TAB PO SCH (22:23)
[2018-02-15] MEDS: BUMETANIDE 1 MG TAB PO SCH ×2 (00:17→09:02)
[2018-02-15] MEDS: HYDROcodone/APAP 5-325MG 1 EACH TAB PO PRN ×2 (05:05→11:07)
[2018-02-15] MEDS: SODIUM CHLORIDE 0.9% 1,000 ML IV SCH (05:23)
[2018-02-15 07:08] VITALS: BP 132/67; PULSE 91; RESP 18; TEMP 98.4
[2018-02-15 07:44] LABS: Basophils % (A) 1 %; Eosinophils # (A) 0.3 k/uL (0-0.7); Eosinophils % (A) 6 %; HCT 35.1 % (34.0-46.0); HGB 11.2 gm/dL (11.4-16.0); Lymphocytes # (A) 1.2 k/uL (1.0-4.8); Lymphocytes % (A) 26 %; MCH 29.3 pg (25.0-35.0); MCHC 31.9 g/dL (31.0-37.0); MCV 91.9 fL (80.0-100.0); Mean Platelet Volume 7.4; Monocytes # (A) 0.4 k/uL (0-1.0); Monocytes % (A) 9 %; Neutrophils # (A) 2.7 k/uL (1.3-7.7); Neutrophils % (A) 57 %; Platelet Count 198 k/uL (150-450); RBC 3.81 m/uL (3.80-5.40); RDW 14.3 % (11.5-15.5); WBC 4.8 k/uL (3.8-10.6)
--- NOTE | 2018-02-15 08:29 | P.DS ---
Providers Date of admission: 02/12/18 05:33 Expected date of discharge: 02/15/18 Attending physician: Mark Siegel Consults: 02/12/18 06:58 Consult Physician Routine Consulting Provider: Lamont Pack Consult Reason/Comments: medical management Do you want consulting provider notified?: Yes Primary care physician: Inder Lr - Discharge Diagnosis(es) (1) S/P total knee arthroplasty Current Visit: Yes Status: Acute Hospital Course: This is a 82-year-old female with known history of a failed unicompartmental right knee replacement. The patient presents for evaluation. After discussion and consideration patient elects to proceed with revision right total knee arthroplasty. The patient is seen preoperatively by Dr. Siegel and medically cleared for surgery by their primary care physician. Patient is admitted to [facility] on 02/12/2018 for revision right total knee arthroplasty. The procedures performed without complication or sequelae. The patient is doing well postoperatively. Labs and vital signs are stable on day of discharge. On day of discharge patient's knee incision is healing well. There is minimal erythema. There is no drainage noted at this time. There is minimal soft tissue swelling to the knee. Patient has full foot and ankle motion without difficulty or pain. Neurovascular status to the right lower extremity is intact. Patient is discharged to rehab in good condition. Please see med rec for accurate list of home medications. Plan - Discharge Summary Discharge Rx Participant: No New Discharge Prescriptions: New Aspirin 325 mg PO BID #60 tab HYDROcodone/APAP 5-325MG [Butler 5-325] 1 - 2 tab PO Q4-6H PRN #84 tab PRN Reason: Pain Sennosides [Senokot] 1 tab PO BID #60 tablet No Action Vitamin B Complex 1 cap PO DAILY Ubidecarenone [Co Q-10] 100 mg PO DAILY Cholecalciferol [Vitamin D3] 1,000 unit PO DAILY Magnesium Oxide [Mag-Ox] 250 mg PO BID Aspirin 81 mg PO DAILY [place]-3 Fatty Acids/Fish Oil [Fish Oil 1,000 mg Softgel] 1 cap PO DAILY Multivit-Min/Iron/Folic/Lutein [Centrum Silver Women Tablet] 1 tab PO DAILY Fexofenadine/Pseudoephedrine [Brina-D 24 Hour Tablet] 1 tab PO DAILY Potassium Chloride [Klor-Con 20] 20 meq PO BID Bumetanide [BUMEX] 2 mg PO BID Estradiol [Estrace] 0.5 mg PO QAM Acetaminophen [Tylenol Extra Strength] 1,000 mg PO BID PRN PRN Reason: Pain Bimatoprost [Lumigan .01% Ophth Soln] 1 drop BOTH EYES HS Sulfamethox-Tmp 800-160Mg [Bactrim DS 800-160 mg] 1 tab PO BID Discharge Medication List Aspirin 81 mg PO DAILY 02/05/18 [History] Bumetanide [BUMEX] 2 mg PO BID 02/05/18 [History] Cholecalciferol [Vitamin D3] 1,000 unit PO DAILY 02/05/18 [History] Estradiol [Estrace] 0.5 mg PO QAM 02/05/18 [History] Fexofenadine/Pseudoephedrine [Brina-D 24 Hour Tablet] 1 tab PO DAILY 02/05/18 [History] Magnesium Oxide [Mag-Ox] 250 mg PO BID 02/05/18 [History] Multivit-Min/Iron/Folic/Lutein [Centrum Silver Women Tablet] 1 tab PO DAILY 04/14 [History] [place]-3 Fatty Acids/Fish Oil [Fish Oil 1,000 mg Softgel] 1 cap PO DAILY [History] Potassium Chloride [Klor-Con 20] 20 meq PO BID 02/05/18 [History] Ubidecarenone [Co Q-10] 100 mg PO DAILY 02/05/18 [History] Vitamin B Complex 1 cap PO DAILY 02/05/18 [History] Acetaminophen [Tylenol Extra Strength] 1,000 mg PO BID PRN 02/08/18 [History] Bimatoprost [Lumigan .01% Ophth Soln] 1 drop BOTH EYES HS 02/12/18 [History] Sulfamethox-Tmp 800-160Mg [Bactrim DS 800-160 mg] 1 tab PO BID 02/12/18 [History ] Aspirin 325 mg PO BID #60 tab 02/15/18 [Rx] HYDROcodone/APAP 5-325MG [Butler 5-325] 1 - 2 tab PO Q4-6H PRN #84 tab 02/15/18 [ Rx] Sennosides [Senokot] 1 tab PO BID #60 tablet 02/15/18 [Rx] Follow up Appointment(s)/Referral(s): Mark Siegel DO [Doctor of Osteopathic Medicine] - 02/27/18 2:00 pm Ambulatory/Diagnostic Orders: Continuous Passive Motion (CPM) Machine [DME.AMB1] Time Frame: 3 Weeks, Location : None Selected Activity/Diet/Wound Care/Special Instructions: Weightbearing as tolerated with a walker CPM 5-6h daily Leave dressing intact. May be removed by home care nurse in 10 days. May shower with dressing on. Please call [facility] with any questions or concerns, Discharge Disposition: TRANSFER TO SNF/ECF
[2018-02-15] MEDS: MULTIVITAMINS, THERA 1 EACH TAB PO SCH (09:02)
[2018-02-15] MEDS: ASPIRIN 325 MG TAB PO SCH (09:02)
[2018-02-15] MEDS: MAGNESIUM OXIDE 400 MG TAB PO SCH (09:02)
[2018-02-15] MEDS: POTASSIUM CHLORIDE ER 20 MEQ TAB.ER PO SCH (09:02)
[2018-02-15] MEDS: CHOLECALCIFEROL 1,000 UNIT TAB PO SCH (09:02)
[2018-02-15] MEDS: LACTATED RINGERS 1,000 ML IV SCH (09:04)
--- NOTE | 2018-02-15 20:31 | P.PN ---
Subjective Progress Note Date: 02/15/18 (delayed charting patient seen at 1045) Principal diagnosis: Knee pain Patient is an 82-year-old female with a past medical history of osteoarthritis, congestive heart failure, and prior urinary tract infection who presented for elective right total knee arthroplasty. She underwent surgery on 02/12 without any immediate postoperative complications. On the morning of 02/13 she had a syncopal event while ambulating back from the bathroom. She felt lightheaded hot and dizzy. The psychiatric nursing aide was with her and she managed to get back to bed was lowered down and then had a presyncopal episode. They checked her blood pressure was 89/58. After lying down for several minutes her blood pressure increased to 119/65. She was found have positive orthostatics. She was maintained on IV fluids and her diuretics were held. Her orthostatic hypotension had resolved on repeat testing by 02/14. Patient seen and examined at bedside. Feeling well. Pain control. No chest pain or shortness of breath. Slightly increased edema. Patient did not want to take her Bumex yesterday. She knows this will improve with her Bumex being [facility]. Objective - Vital Signs Vital signs: Vital Signs Temp 98.4 F 02/15/18 07:07 Pulse 91 02/15/18 07:07 Resp 18 02/15/18 07:07 BP 132/67 02/15/18 07:07 Pulse Ox 95 02/15/18 00:00 Intake & Output 02/15/18 02/15/18 02/16/18 06:59 18:59 06:59 Intake Total 350 118 Balance 350 118 Intake: Intake, IV Titration 350 Amount Sodium Chloride 0.9% 1, 350 000 ml @ 100 mls/hr IV . Q10H [facility] Rx#:[id number] Oral 118 Other: Voiding Method Toilet # Voids 3 - Exam General: non toxic, no distress, appears younger than stated age, obese Derm: warm, dry Head: atraumatic, normocephalic, symmetric Eyes: EOMI, no lid lag, anicteric sclera Mouth: no lip lesion, mucus membranes moist Cardiovascular: S1S2 reg, no murmur, positive posterior tibial pulse bilateral, Lungs: CTA bilateral, no rhonchi, no rales , no accessory muscle use Abdominal: soft, nontender to palpation, no guarding, no appreciable organomegaly Ext: no gross muscle atrophy, trace edema bilateral lower extremities, dressing in place over right knee, no contractures Neuro: CN II-XI grossly intact, no focal neuro deficits Psych: Alert, oriented, appropriate affect - Labs CBC & Chem 7: 02/15/18 07:21 Labs: Abnormal Lab Results - Last 24 Hours (Table) 02/15/18 Range/Units 07:21 Hgb 11.2 L (11.4-16.0) gm/dL Assessment and Plan Assessment: Syncopal event due to orthostatic hypotension, resolved Osteoarthritis status post right total knee arthroplasty -Management per orthopedic surgery -Anticoagulated with aspirin -High-risk features of this patient including age of 82, obesity with a BMI of 30.6, living alone, requiring a cane/shower chair/walker prior to admission for knee replacement. She is also at risk with her syncopal event and polypharmacy required for adequate pain control. -Instructions given for patient to resume her aspirin 81 mg daily when she has completed her 30 days of aspirin 325 mg twice a day. She will also be placed on a PPI during her twice a day aspirin regimen. Acute blood loss anemia as an anticipated outcome of surgery -Follow CBC in a.m. -No indication for oral iron supplementation at this point in time Chronic Congestive heart failure, unknown ejection fraction -Off IV fluids -Resume diuretics -Patient is not chronically on beta baron or JARVIS inhibitor and this will not be initiated at this point in time Patient medically stable for discharge, orders added to discharge tab DVT prophylaxis: Aspirin Discussed with: Patient and nursing Anticipated discharge: Today Anticipated discharge place: [facility] A total of 25 minutes was spent on the care of this complex patient more than 50 % of the time was spent in counseling and care coordination.
== END 2018-02-15 11:46 | DRG 467 ==
LOC: 2ORMAIN 05:33 → 3SUR 09:45
PROVIDERS: ADMIT Orthopaedic Surgery; ATTEND Orthopaedic Surgery
PROC: 0SRC069 Replacement of Right Knee Joint with Oxidized Zirconium on Polyethylene Synthetic Substitute, Cemented, Open Approach (ICD-10-PCS; 2018-02-12)
PROC: 0SPC0JZ Removal of Synthetic Substitute from Right Knee Joint, Open Approach (ICD-10-PCS; principal; 2018-02-12 07:00)
DX: T84.092A Other mechanical complication of internal right knee prosthesis, initial encounter (principal); D62 Acute posthemorrhagic anemia; M17.11 Unilateral primary osteoarthritis, right knee; I50.9 Heart failure, unspecified; I11.0 Hypertensive heart disease with heart failure; I95.1 Orthostatic hypotension; E66.9 Obesity, unspecified; Z68.30 Body mass index [BMI] 30.0-30.9, adult; Z79.82 Long term (current) use of aspirin; Z79.899 Other long term (current) drug therapy; Z87.440 Personal history of urinary (tract) infections; Z90.49 Acquired absence of other specified parts of digestive tract; Z98.1 Arthrodesis status; Z98.42 Cataract extraction status, left eye; Z98.41 Cataract extraction status, right eye; Z88.1 Allergy status to other antibiotic agents; Z88.0 Allergy status to penicillin; Z88.8 Allergy status to other drugs, medicaments and biological substances; Z91.048 Other nonmedicinal substance allergy status; Y79.2 Prosthetic and other implants, materials and accessory orthopedic devices associated with adverse incidents; Z80.0 Family history of malignant neoplasm of digestive organs; Z80.8 Family history of malignant neoplasm of other organs or systems
CPT/HCPCS: 71045; 85025; 88300